=== PATIENT | male | born 1965 | race Caucasian/White ===

== ENCOUNTER 2019-04-12 07:41 | Day surgery (SDC) | payer OTHER ==
[~2019-04-12] VITALS: Ht 177.8 cm; Wt 101.2 kg
[~2019-04-12 07:41] MED LIST: ASPIR 8181 MG PO; CHANTIX1 MG PO; CHLORTHALIDONE25 MG PO; FISH OIL 1,0001 EAC1 PO; LEVITRA20 MG PO; LISINOPRIL20 MG PO; NORVIR100 M1 PO; PAROXETINE HCL20 MG PO; REYATAZ300 MG PO; TRIUMEQ TABLET1 EACH PO; TRUVADA 200 MG1 EACH PO; VENTOLIN HFA18 GM INH; VITAMIN D5000 UNIT PO
--- NOTE | 2019-04-12 10:07 | NUR ---
04/12/19 Lillie Mcintosh 1004-PATIENT ARRIVED TO PACU ON 3L NC AWAKE DENIES PAIN OR NAUSEA. PLACED ON 2L NC RR EVEN. ABDOMEN SOFT. ENCOURAGED DEEP BREATHING.
--- NOTE | 2019-04-12 11:05 | OR ---
[facility] [address], [place] [address] Signed DATE OF OPERATION: 04/12/2019 SURGEON: Linda Gutiérrez MD PREOPERATIVE DIAGNOSES: 1. Diverticulosis. 2. Personal history of colonic polyps in 2013. 3. Paternal grandfather with colon cancer in his 80s. POSTOPERATIVE DIAGNOSES: 1. 3 mm polyp x1 at 5 cm. 2. 3 mm polyps x3 at 10 cm. 3. 6 mm polyp at 50 cm. 4. 8 mm polyp at proximal right colon. 5. 3 mm polyp at distal right colon. 6. 3 mm polyps x2 at 22 cm. 7. Moderate zamudio-diverticulosis. PROCEDURE: Colonoscopy with hot biopsy. ESTIMATED BLOOD LOSS: None. INDICATIONS: Bhanu is a 54-year-old gentleman, asked to see me initially in December 2013. He had moderate left-sided diverticulosis at that time. He had tubulovillous and tubular adenomatous polyps along with some hyperplastic polyps. Also, his paternal grandfather was diagnosed and of colon cancer in his 80s. Apparently, he refused to do anything about it. Bhanu is returning now for his followup colonoscopy. He said he has no lower GI complaints. In the office, I gave him a pamphlet on colonoscopy and he recalls that test quite nicely. There is risk to that test including but not limited to gas, bloating, crampy abdominal pain, bleeding, perforation requiring surgery, and missed diagnosis. He also understands the need for IV conscious sedation. He takes a significant amount of Versed and fentanyl each time. In fact, he was awake during much of our test today, but seemed to be quite comfortable. If not, he will need propofol with monitored anesthesia care in the future. He has expressed understanding and wished to proceed. PROCEDURE NOTE: Electronically Signed By: LINDA GUTIÉRREZ MD 04/12/19 1105 PATIENT NAME: MUKESH LEON OPERATIVE REPORT DATE OF : 61 REPORT #: [id number] PHYSICIAN: LINDA GUTIÉRREZ MD PCP: JEFF MARROQUIN MD REPORT IS CONFIDENTIAL AND NOT TO BE RELEASED WITHOUT AUTHORIZATION [facility] [address], [place] [address] Signed Bhanu was taken into our endoscopy suite and placed in the left lateral decubitus position. He was given a total of 15 mg of Versed and 200 mcg of fentanyl to cover the whole case. He was never quite completely out and was able to watch much of it throughout the procedure. Again, if he was uncomfortable, he will need monitored anesthesia care with propofol in the future. A digital rectal exam was performed and this was unremarkable. Just some mild induration to the prostate gland. The adult colonoscope was introduced and advanced all around into the cecum under direct visualization of the camera without difficulty. His prep was good. We could easily see the appendiceal orifice and the ileocecal valve. We took pictures throughout for photodocumentation. On this occasion, he has right and left-sided diverticulosis. They are moderate in size, moderate in number, and scattered about. The above-mentioned polyps were easily removed with the help of hot biopsy forceps. Once in the rectum, the scope had been retroflexed and very little if any in the way of internal hemorrhoid tissue. After this, the gas had been suctioned out and the colonoscope removed. Overall, Bhanu tolerated the procedure well. RECOMMENDATIONS: I will see just back in my office in 7 to 14 days to review his results. It looks like he will stay on the 5-year rotation. If he was uncomfortable and has recall of that procedure, he should consider monitored anesthesia care with propofol in the future. Linda Gutiérrez MD ALB/MODL /[id number] cc: MD Linda James MD Copies: JEFF MARROQUIN MD Electronically Signed By: LINDA GUTIÉRREZ MD 04/12/19 1105 PATIENT NAME: MUKESH LEON OPERATIVE REPORT DATE OF : 61 REPORT #: [id number] PHYSICIAN: LINDA GUTIÉRREZ MD PCP: JEFF MARROQUIN MD REPORT IS CONFIDENTIAL AND NOT TO BE RELEASED WITHOUT AUTHORIZATION [address] [address] Signed LINDA GUTIÉRREZ MD ~ Electronically Signed By: LINDA GUTIÉRREZ MD 04/12/19 1105 PATIENT NAME: MUKESH LEON OPERATIVE REPORT DATE OF : 61 REPORT #: [id number] PHYSICIAN: LINDA GUTIÉRREZ MD PCP: JEFF MARROQUIN MD REPORT IS CONFIDENTIAL AND NOT TO BE RELEASED WITHOUT AUTHORIZATION
--- NOTE | 2019-04-13 16:14 | PATH ---
[facility] [address] [facility] [place] [address] Signed SPECIMEN(S): A COLON POLYP AT 10 CM SPECIMEN(S): B COLON POLYP AT 50 CM SPECIMEN(S): C PROXIMAL ASCENDING POLYP SPECIMEN(S): D DISTAL ASCENDING POLYP SPECIMEN(S): E COLON POLYP AT 22 CM SPECIMEN(S): F COLON POLYP AT 5 CM SPECIMEN SOURCE: A. COLON POLYP AT 10 CM B. COLON POLYP AT 50 CM C. PROXIMAL ASCENDING POLYP D. DISTAL ASCENDING POLYP E. COLON POLYP AT 22 CM F. COLON POLYP AT 5 CM CLINICAL HISTORY: History of polyps, family history of colon cancer. Postop Dx: Pandiverticulosis, polyps. MICROSCOPIC DESCRIPTION: Histologic sections of all submitted blocks are examined by light microscopy. These findings, together with the gross examination, support the pathologic diagnosis. FINAL PATHOLOGIC DIAGNOSIS: A. Mucosa, colon at 10 cm, biopsy: - Hyperplastic polyp. B. Mucosa, colon at 50 cm, biopsy: - No microscopic pathologic diagnosis (Polyp, clinical (See comment). C. Mucosa, proximal ascending colon, biopsy: - Features suggestive but not entirely diagnostic of serrated adenoma. - Negative for dysplasia. D. Mucosa, distal ascending colon, biopsy: - No microscopic pathologic diagnosis (Polyp, clinical (See comment). E. Mucosa, colon at 22 cm, biopsy: - No microscopic pathologic diagnosis (Polyp, clinical (See comment). F. Mucosa, colon at 5 cm, biopsy: - Surface features suggestive but not entirely diagnostic of hyperplastic polyp (See comment). COMMENT: B, D, E Multiple levels over three slides are examined. No adenomatous or PATIENT NAME: MUKESH LEON PATHOLOGY DATE OF : 61 REPORT #: [id number] PHYSICIAN: DLEL PATHOLOGY PCP: JEFF MARROQUIN MD REPORT IS CONFIDENTIAL AND NOT TO BE RELEASED WITHOUT AUTHORIZATION [facility] [address] [place], [place] [address] Signed hyperplastic change is seen. FMultiple levels over three slides are examined. No adenomatous change or full thickness hyperplastic change is seen. LJA:cml:C2NR GROSS DESCRIPTION: Six specimens are received in six containers, labeled "JW." A. The specimen, labeled "JW, colon polyp at 10 cm," is received in formalin and consists of four 0.2 to 0.4 cm servin fragments. Specimen is entirely submitted in cassette (A1). B. The specimen, labeled "JW, colon polyp at 50 cm," is received in formalin and consists of a single 0.3 cm servin fragment. Specimen is entirely submitted in cassette (B1). C. The specimen, labeled "JW, proximal ascending colon polyp," is received in formalin and consists of four 0.3 to 0.4 cm servin-brown tissue fragments. Specimen is entirely submitted in cassette (C1). D. The specimen, labeled "JW, distal ascending colon polyp," is received in formalin and consists of a single 0.2 cm servin fragment. Specimen is entirely submitted in cassette (D1). E. The specimen, labeled "JW, colon polyp at 22 cm," is received in formalin and consists of two 0.2 and 0.3 cm servin fragments. Specimen is entirely submitted in cassette (E1). F. The specimen, labeled "JW, colon polyp at 5 cm," is received in formalin and consists of a single 0.3 cm servin fragment. Specimen is entirely submitted in cassette (F1). AM (under the direct supervision of a pathologist) The Gross Description was prepared using a voice recognition system. The report was reviewed for accuracy; however, sound-alike word errors, addition and/or deletions may occur. If there is any question about this report, please contact Client Services. PERFORMING LABORATORY: The technical component was performed by [employer], [address] [place] [id number] (Diamond Grader: Jessica Campuzano MD; CLIA# [id number]). [facility], [address] [address] (Diamond Grader: Deven Wheatley MD; CLIA# [id number]). Diagnostician: Deven Wheatley MD Pathologist PATIENT NAME: MUKESH LEON PATHOLOGY DATE OF : 61 REPORT #: [id number] PHYSICIAN: DELL PATHOLOGY PCP: JEFF MARROQUIN MD REPORT IS CONFIDENTIAL AND NOT TO BE RELEASED WITHOUT AUTHORIZATION [facility] [address] [id number] Signed Electronically Signed 04/13/2019 Copies: ~ PATIENT NAME: MUKESH LEON PATHOLOGY DATE OF : 61 REPORT #: [id number] PHYSICIAN: DELL PATHOLOGY PCP: JEFF MARROQUIN MD REPORT IS CONFIDENTIAL AND NOT TO BE RELEASED WITHOUT AUTHORIZATION
== END 2019-04-12 10:55 | disposition home or self-care (01) ==
LOC: OPS 07:41 → DS 09:00 → OPS 10:55
PROVIDERS: Colon & Rectal Surgery
PROC: 0DBE8ZZ Excision of Large Intestine, Via Natural or Artificial Opening Endoscopic (ICD-10-PCS; 2019-04-12)
PROC: 0DBM8ZZ Excision of Descending Colon, Via Natural or Artificial Opening Endoscopic (ICD-10-PCS; 2019-04-12)
PROC: 0DBK8ZZ Excision of Ascending Colon, Via Natural or Artificial Opening Endoscopic (ICD-10-PCS; principal; 2019-04-12 09:00)
DX: Z12.11 Encounter for screening for malignant neoplasm of colon (principal); K63.5 Polyp of colon; K57.30 Diverticulosis of large intestine without perforation or abscess without bleeding; N42.89 Other specified disorders of prostate; I10 Essential (primary) hypertension; B20 Human immunodeficiency virus [HIV] disease; F17.210 Nicotine dependence, cigarettes, uncomplicated; Z86.010 Personal history of colon polyps; Z80.0 Family history of malignant neoplasm of digestive organs; Z98.890 Other specified postprocedural states; Z88.5 Allergy status to narcotic agent; Z79.899 Other long term (current) drug therapy; Z79.82 Long term (current) use of aspirin
CPT/HCPCS: 99153; G0500; J2250; J3010; J7120